=== PATIENT | female | born 1995 | race Caucasian/White ===

== ENCOUNTER 2022-01-27 12:49 | Outpatient (CLI) | payer OTHER | END 2022-01-27 13:24 | disposition home or self-care (01) | LOC: NST 12:49 | PROVIDERS: ATTEND Obstetrics & Gynecology | DX: Z34.83 Encounter for supervision of other normal pregnancy, third trimester (principal) ==

== ENCOUNTER 2022-03-21 09:45 | Inpatient (IN) | payer OTHER ==
[~2022-03-21] VITALS: Ht 154.9 cm; Wt 3.2 kg
[2022-03-28] MEDS ORDERED: IRON325 MG PO (08:29)
[2022-03-28] MEDS ORDERED: PR NATAL 400 C1 EACH PO (08:30)
[2022-03-31] MEDS ORDERED: KETO10TA2 PO (10:24)
== END 2022-03-31 12:41 | disposition home or self-care (01) | DRG 788 ==
LOC: O/R 03-28 08:06 → OB/GYN 03-28 09:45 → SURG-SUITE 03-28 15:58
PROVIDERS: ADMIT Obstetrics & Gynecology; ATTEND Obstetrics & Gynecology
PROC: 4A1HXCZ Monitoring of Products of Conception, Cardiac Rate, External Approach (ICD-10-PCS; 2022-03-28)
PROC: 10D00Z1 Extraction of Products of Conception, Low, Open Approach (ICD-10-PCS; principal; 2022-03-28 13:00)
DX: O34.211 Maternal care for low transverse scar from previous cesarean delivery (principal); Z3A.39 39 weeks gestation of pregnancy; Z37.0 Single live birth; Z20.822 Contact with and (suspected) exposure to COVID-19